=== PATIENT | female | born 2005 | race Caucasian/White ===

== ENCOUNTER → 2024-02-04 13:39 | Outpatient (REF) | payer OTHER, SELFPAY | LOC: HWRAD 13:39 | PROVIDERS: ATTENDING PHYSICIAN Nurse Practitioner Adult Health | DX: R07.81 Pleurodynia (principal) | CPT/HCPCS: 71101 ==

== ENCOUNTER 2024-03-21 18:34 | Emergency (ER) | payer OTHER, SELFPAY ==
[2024-03-21 18:38] VITALS: BP 120/74
[2024-03-21 18:58] LABS: % Basophils 0.6 % (0-2); % Eosinophils 1.9 % (0-6); % Immature Granulocytes 0.3 % (0-0.5); % Lymphocytes 25.1 % (20.5-51.1); % Monocytes 8.4 % (1.7-9.3); % Neutrophils 63.7 % (42.2-75.2); Absolute Basophils 0.1 10^3/uL (0-0.2); Absolute Eosinophils 0.2 10^3/uL (0-0.7); Absolute Neutrophils 7.6 10^3/uL (1.4-6.5); Hemoglobin 14.1 g/dL (12.0-16.0); Mean Corp Hgb Conc. 35.3 g/dL (33.0-37.0); Mean Corpuscular Volume 82.1 fL (81.0-99.0); Mean Platelet Volume 11.3 fL (7.4-10.4); Nucleated Red Blood Cells % 0 %; Platelet Count 295 10^3/uL (130-400); Red Blood Cell Count 4.87 10^6/uL (4.20-5.40); Red Cell Dist. Width 12.2 % (11.5-14.5); White Blood Cell Count 11.8 10^3/uL (4.8-10.8)
[2024-03-21 19:09] LABS: ALT (SGPT) 17 U/L (0-35); AST (SGOT) 25 U/L (14-36); Albumin 4.4 g/dl (3.5-5.0); Alkaline Phosphatase 59 U/L (38-126); Blood Urea Nitrogen 11 mg/dl (7-17); Calcium 10.3 mg/dl (8.4-10.2); Carbon Dioxide 25 mmol/L (22-30); Chloride 105 mmol/L (98-107); Glucose 96 mg/dl (70-99); Potassium 4.6 mmol/L (3.5-5.1); Sodium 143 mmol/L (135-145); Total Bilirubin 0.2 mg/dl (0.2-1.3); Total Protein 6.9 g/dl (6.3-8.2); eGFR > 60.00
[2024-03-21 20:09] LABS: Urine Albumin Negative (Neg - Trace); Urine Bilirubin Negative (Negative); Urine Character Slightly Cloudy (Clear); Urine Color Straw; Urine Glucose Negative (Negative); Urine Ketone Negative (Negative); Urine Leukocyte Trace (Negative); Urine Nitrite Negative (Negative); Urine Occult Blood Negative (Negative); Urine Specific Gravity 1.015 (<1.030); Urine Urobilinogen Negative (Neg - 1+)
[2024-03-21 20:10] VITALS: BMI 31.7
[2024-03-21 20:10] LABS: HCG, Urine Qualitative Screen Negative
[2024-03-21 20:14] VITALS: BP 113/67
[2024-03-21 20:18] LABS: Urine Amorphous Seen; Urine Bacteria Moderate (Negative); Urine Red Blood Cell 0-2 /HPF (0-2)
--- NOTE | 2024-03-21 20:46 | ED.GENMED ---
History of Present Illness
General
Chief Complaint: Seizure
Time Seen by Provider: 03/21/24 20:18
History of Present Illness
History of Present Illness:
Patient is a 18-year-old female presenting to the emergency department possible seizure-like activity. She states that yesterday she finished her homework and was sitting in her car about to drive. She states that she was sitting when she
developed full body shaking that was uncontrollable. She felt locked up. She felt her face twitching and her eyes twitching. She was aware of this the entire time. She states that lasted 5 to 10 minutes. For the next hour she was confused.
Today she feels fuzzy and foggy. She does feel off focus and disoriented. She is having some trembling today but is able to control them. Her muscles do feel sore. No family history of seizures. She denies any alcohol or drug use. Her last
period was March 01. She denies any current numbness tingling or weakness. No fevers or chills. No neck stiffness. No headache. No vision changes. No nausea or vomiting. No falls
Phy Exam
Physical Exam
Physical Exam:
GENERAL: in no acute distress
HEENT: normocephalic, extraocular movements intact, moist oral mucosa
NECK: normal inspection
RESPIRATORY: no respiratory distress, clear to auscultation bilaterally
CARDIOVASCULAR: regular rate and rhythm
ABDOMEN/: soft, non-distended, non-tender to palpation, no rebound or guarding
EXTREMITIES: non-tender, no edema/swelling
NEUROLOGIC: NEUROLOGIC: alert and oriented x 3, cranial nerves II-XII intact, right upper extremity strength 5/5, left upper extremity strength 5/5, right lower extremity strength 5/5, left lower extremity strength 5/5, normal sensation to light
touch, normal [id number] and [id number], gait not tested formally
SKIN: warm
Course
Orders/Labs/Results
Orders:
Orders
03/21/24 18:45
Test Result ONCE
03/21/24 18:51
Complete Blood Count/With Diff Urgent
Comprehensive Metabolic Panel Urgent
Creatine Phosphokinase Urgent
Comment: ADD ON
Magnesium Urgent
Comment: ADDON
TSH Reflex To Free T4 Urgent
Comment: ADDON
03/21/24 20:00
Urinalysis Reflex To Culture Urgent
Date Specimen was Collected: 03/21/24
Time Specimen was Collected: 18:45
Urine Drug Abuse Screen Urgent
Date Specimen was Collected: 03/21/24
Time Specimen was Collected: 18:45
Urine Microscopic Reflex Cult Urgent
Urine,Hcg qualitative screen [HCG, Urine Qualitative Screen] Urgent
Date Specimen was Collected: 03/21/24
Time Specimen was Collected: 18:45
Urine Culture Urgent
MADDY Source: U
Specimen Description:
Date Specimen was Collected: 03/21/24
Time Specimen was Collected: 18:45
03/21/24 20:40
Add On- LAB Stat
Tests Added?: magnesium, thyroid with reflex
CT Head W/o Iv Contrast Urgent
Comment:
Reason For Exam: seizure
03/21/24 20:46
COVID-19 Antigen Urgent
Source: Nasal Swab
Influenza A+B Rapid Molecular Urgent
MADDY Source: Nasal Swab
Specimen Description:
03/21/24 20:54
Add On- LAB Urgent
Tests Added?: total CK, Urine drug screen
Abnormal Lab Results
03/21/24 03/21/24
18:51 20:00
WBC 11.8 H 10^3/uL
(4.8-10.8)
MPV 11.3 H fL
(7.4-10.4)
Absolute Neuts (auto) 7.6 H 10^3/uL
(1.4-6.5)
Absolute Monos (auto) 1.0 H 10^3/uL
(0.1-0.6)
Calcium 10.3 H mg/dl
(8.4-10.2)
Leukocyte Esterase Rfl Trace A
(Negative)
Urine Bacteria (Reflex) Moderate A
(Negative)
03/21/24 18:51
03/21/24 18:51
Vital Signs
Initial and Last Documented VS:
Initial Vital Signs
Temp Pulse Resp BP Pulse Ox
98.6 F 95 18 120/74 98
03/21/24 18:38 03/21/24 18:38 03/21/24 18:38 03/21/24 18:38 03/21/24 18:38
Last Documented Vital Signs
Temp Pulse Resp BP Pulse Ox
98.6 F 95 18 120/74 98
03/21/24 18:38 03/21/24 18:38 03/21/24 20:19 03/21/24 18:38 03/21/24 18:38
MDM/Problems Addressed
Differential Diagnosis Includes:
Patient is a 18-year-old presenting to the emergency department with seizure-like activity that occurred yesterday with ongoing fogginess. Vitals here are unremarkable and exam shows no neurodeficits. Concern for seizure, brain mass, traumatic
injury though less likely given no history of. She denies any recent stressors. Could be metabolic derangement or thyroid abnormality. Will rule out rhabdo. History exam not consistent with meningitis or encephalitis. Could be COVID or flu.
Blood work obtained prior to evaluation does show white count at 11. Otherwise BMP is normal. Will add on magnesium and thyroid. Will also check CK level. Given the ongoing fogginess I did discuss with neurology. After discussion with neurology
likely nonepileptic seizure especially with medical history. We did discuss with the possibility of admission but that's time per neurology no role for admission for continuous EEG. Will not start her on any antiepileptics. Will give follow-up
for neurology. Will fill out state DMV form for driving.
*Critical Care Note
Total Time (30-74mins, 75-104mins- exclusive of procedures): Not Applicable
Update Note
Update Note:
On reevaluation patient resting comfortably. CT scan of the head per my interpretation negative. Patient without any urinary symptoms likely asymptomatic bacteriuria. Will discharge at this time. All questions answered. Unfortunately patient's
parents are extremely upset about the DMV for. Did highlight the importance of adhering to this as well as following up with neurology.
ED Attending Note
-
Portions of this chart may have been created with voice recognition software.� Occasional wrong word or��sound alike� substitutions may have occurred due to the inherent limitations of voice recognition software.
Discharge Plan
Departure
Patient Disposition: Home (Routine Discharge)
Date of Disposition: 03/21/24
Time of Disposition: 22:41
Patient with high blood pressure during this ER visit?: No
Discharge Problem:
Seizure-like activity
Instructions: Seizures, Adult (DC)
Prescriptions:
No Action
fluoxetine [Prozac] 10 mg Capsule
10 mg PO DAILY
albuterol sulfate 90 mcg/actuation Hfa Aerosol Inhaler
2 puff INHALATION PRN PRN (Reason: SOB)
glycopyrrolate
1 tab PO TID
hydrocodone-acetaminophen 5-300 mg tablet
1 - 2 tab PO .q4-6 hours PRN (Reason: pain) 10 Days Qty: 25 0RF
ondansetron [ondansetron] 4 mg tablet,disintegrating
4 mg PO Q8HPRN PRN (Reason: nausea) Qty: 5 1RF
Referrals:
Emma Dash MD [Active] -
Nivia Ramos DO [Family Provider] -
Activity Restrictions/Additional Instructions:
You were seen in the Emergency Department today for seizure-like activity that occurred yesterday. While you were here we performed blood work as well as CT scan, which was reassuring.
We would like for you to follow up with your primary care physician for further evaluation. Please also follow-up with the neurologist. If you experience fever, worsening of your symptoms, or develop any other new or concerning symptoms, please
return to the Emergency Department immediately.
Please see the attached sheet for additional information.
- Do not drive until cleared by a medical professional who has known you for > 3 months.
- Do not swim or take a tub bath alone.
- Do not climb to great heights (i.e. ladders, scaffolding etc).
- Do not cook over an open flame alone.
- If you do care, do not bathe baby alone. Feed the infant on the floor or the lowest setting of the high chair. Buckle the baby into a car seat when going up or down the stairs.
Interventions
Interventions:
*Risk Screen - Suicide Last Done: 03/21/24 18:38
*General Assessment Last Done: 03/21/24 18:38
*Neglect/Abuse Screening Last Done: 03/21/24 20:10
ED- Fall Risk Assessment Last Done: 03/21/24 20:18
*ED COVID-19 Vaccine History Last Done: 03/21/24 18:38
ED- Cardiac Assessment Last Done: 03/21/24 20:17
ED- Neurological Assessment Last Done: 03/21/24 20:17
ED- Pulmonary Assessment Last Done: 03/21/24 20:17
Discharge Date and Time
Print Language: PASHTO
[2024-03-21 21:00] VITALS: BP 113/68
[2024-03-21 21:12] LABS: Creatine Phosphokinase 90 U/L (30-135); Magnesium 1.9 mg/dl (1.6-2.3)
[2024-03-21 21:21] LABS: Amphetamines Negative (Negative); Barbiturates Negative (Negative); Benzodiazepines Negative (Negative); Buprenorphine Negative (Negative); Cocaine Negative (Negative); Marijuana Negative (Negative); Methadone Negative (Negative); Methamphetamines Negative (Negative); Opiates Negative (Negative); Phencyclidine Negative (Negative); Tricyclic Antidepressants Negative (Negative)
[2024-03-21 21:21] LABS: COVID-19 Antigen Negative (Negative)
[2024-03-21 21:55] LABS: TSH Reflex To Free T4 2.27 uIU/ml (0.47-4.68)
[2024-03-21 22:00] VITALS: BP 106/57
== END 2024-03-21 23:04 | disposition home or self-care (01) ==
LOC: EMR 18:34
PROVIDERS: Emergency Medicine; EMERGENCY PHYSICIAN Student in an Organized Health Care Education/Training Program; FAMILY PHYSICIAN Internal Medicine
DX: R56.9 Unspecified convulsions (principal)
CPT/HCPCS: 99284; 70450; 80053; 80306; 81003; 81015; 81025; 82550; 83735; 84443; 85025; 87086; 87502; 87811

== ENCOUNTER → 2024-03-25 09:23 | Outpatient (REF) | payer OTHER, SELFPAY ==
[2024-03-25 12:48] LABS: % Basophils 0.7 % (0-2); % Eosinophils 2.2 % (0-6); % Immature Granulocytes 0.2 % (0-0.5); % Lymphocytes 26.1 % (20.5-51.1); % Monocytes 9.5 % (1.7-9.3); % Neutrophils 61.3 % (42.2-75.2); Absolute Basophils 0.1 10^3/uL (0-0.2); Absolute Eosinophils 0.2 10^3/uL (0-0.7); Absolute Lymphocytes 2.1 10^3/uL (1.2-3.4); Absolute Monocytes 0.8 10^3/uL (0.1-0.6); Hemoglobin 13.3 g/dL (12.0-16.0); Mean Corpuscular Hgb 30.4 pg (27.0-31.0); Mean Corpuscular Volume 86.8 fL (81.0-99.0); Mean Platelet Volume 11.8 fL (7.4-10.4); Nucleated Red Blood Cells % 0 %; Platelet Count 197 10^3/uL (130-400); Red Blood Cell Count 4.38 10^6/uL (4.20-5.40); White Blood Cell Count 8.1 10^3/uL (4.8-10.8)
[2024-03-25 13:43] LABS: ALT (SGPT) 14 U/L (0-35); AST (SGOT) 24 U/L (14-36); Albumin 4.1 g/dl (3.5-5.0); Alkaline Phosphatase 55 U/L (38-126); Blood Urea Nitrogen 12 mg/dl (7-17); Calcium 9.3 mg/dl (8.4-10.2); Carbon Dioxide 26 mmol/L (22-30); Chloride 105 mmol/L (98-107); Glucose 91 mg/dl (70-99); Potassium 4.3 mmol/L (3.5-5.1); Sodium 141 mmol/L (135-145); Total Bilirubin 0.2 mg/dl (0.2-1.3); Total Protein 6.5 g/dl (6.3-8.2); eGFR > 60.00
== END ==
LOC: HWLAB 09:23
PROVIDERS: ATTENDING PHYSICIAN Internal Medicine
DX: D72.829 Elevated white blood cell count, unspecified (principal); E83.52 Hypercalcemia
CPT/HCPCS: 36415; 80053; 85025